=== PATIENT | female | born 1945 | race Caucasian/White ===

== ENCOUNTER 2017-03-25 21:20 | Inpatient (IN) | payer MEDICAID ==
[2017-03-26] MEDS: morphine 4 MG/ML VIAL IV (00:23)
[2017-03-26] MEDS: ONDANSETRON 4 MG INJ IV (00:24)
[2017-03-26 00:29] LABS: ADD UMIC YES; UR ASCORBIC ACID NEGATIVE (NEGATIVE); UR BACTERIA MANY /HPF (NONE SEEN); UR BILIRUBIN (Dip) NEGATIVE (NEGATIVE); UR BLOOD (Dip) NEGATIVE (NEGATIVE); UR CLARITY CLOUDY (CLEAR); UR COLOR AMBER (YELLOW); UR GLUCOSE (Dip) NEGATIVE (NEGATIVE); UR GRANULAR CAST FEW /HPF (NONE SEEN); UR KETONES (Dip) 1+ mg/dL (NEGATIVE); UR LEUKOCYTE ESTERASE (Dip) 3+ Leu/ul (NEGATIVE); UR MUCUS FEW /HPF (NONE SEEN); UR NITRITE (Dip) POSITIVE (NEGATIVE); UR RBC 6 /HPF (0-5); UR SPECIFIC GRAVITY (Dip) 1.018 (1.003-1.030); UR SQUAMOUS EPITHELIAL CELL FEW /HPF (FEW); UR TOTAL PROTEIN (Dip) 2+ mg/dl (NEGATIVE); UR TRANSITIONAL EPI CELL FEW /HPF (NONE SEEN); UR UROBILINOGEN (Dip) NEGATIVE (NEGATIVE); UR WBC 34 /HPF (0-5)
[2017-03-26 00:32] LABS: ADD MAN DIFF? NO
[2017-03-26] MEDS: SODIUM CHLORIDE 0.9% 1L BAG IV* (00:35)
[2017-03-26 00:54] LABS: WHITE BLOOD COUNT 8.4 10^3/ul (4.8-10.8)
[2017-03-26 00:54] LABS: BASOPHIL # 0.1 10^3/ul (0.0-0.1); BASOPHILS % 0.7 % (0.0-2.0); HEMATOCRIT 42.9 % (37.0-47.0); HEMOGLOBIN 13.5 g/dl (12.0-16.0); LYMPHOCYTES # 0.7 10^3/ul (0.8-2.9); MEAN CORPUSCULAR HEMOGLOBIN 26.1 pg (29.0-33.0); MEAN CORPUSCULAR HGB CONC 31.5 g/dl (32.0-37.0); MEAN CORPUSCULAR VOLUME 82.8 fl (82.0-101.0); MONOCYTE # 0.7 10^3/ul (0.3-0.9); MONOCYTES % 8.5 % (0.0-11.0); NEUTROPHIL # 6.9 10^3/ul (1.6-7.5); NEUTROPHILS % 82.3 % (39.0-77.0); PLATELET COUNT 260 10^3/UL (140-415); RED BLOOD COUNT 5.18 10^6/ul (4.20-5.40); RED CELL DISTRIBUTION WIDTH 16.8 % (11.5-14.5)
[2017-03-26 01:26] LABS: LACTIC ACID 1.5 mmol/L (0.5-2.0)
[2017-03-26 01:29] LABS: ALANINE AMINOTRANSFERASE 31 IU/L (13-69); ALBUMIN 4.2 g/dl (3.3-4.9); ALKALINE PHOSPHATASE 109 IU/L (42-121); ANION GAP 20 (8-16); ASPARTATE AMINO TRANSFERASE 27 IU/L (15-46); BLOOD UREA NITROGEN 20 mg/dl (7-20); CALCIUM 9.5 mg/dl (8.4-10.2); CARBON DIOXIDE 24 mmol/L (21-31); CHLORIDE 102 mmol/L (97-110); CREATININE 1.14 mg/dl (0.44-1.00); GLUCOSE 173 mg/dl (70-220); POTASSIUM 3.6 mmol/L (3.5-5.1); SODIUM 142 mmol/L (135-144); TOTAL PROTEIN 7.7 g/dl (6.1-8.1)
[2017-03-26 01:40] LABS: TROPONIN-I 0.012 ng/ml (0.00-0.12)
[2017-03-26 01:43] LABS: INR 0.89; PROTIME 12.1 Sec (11.9-14.9); PT RATIO 0.9
[2017-03-26 01:44] LABS: PARTIAL THROMBOPLASTIN TIME 33.8 Sec (25.0-35.0)
[2017-03-26 02:35] LABS: LACTIC ACID 0.8 mmol/L (0.5-2.0)
[2017-03-26] MEDS ORDERED: ONDANSETRON 4 MG INJ IV (03:30)
[2017-03-26] MEDS ORDERED: ACETAMINOPHEN 325 MG TAB PO (03:30)
[2017-03-26] MEDS ORDERED: morphine 2 MG INJ IV (06:30)
[2017-03-26] MEDS ORDERED: NACL 0.9% 3 ML SYG IV (06:30)
[2017-03-26] MEDS ORDERED: DEXTROSE 50% 50 ML SYRINGE IV ×2 (06:30)
[2017-03-26] MEDS ORDERED: GLUCOSE GEL 15 GRAM TUBE PO ×2 (06:30)
[2017-03-26] MEDS ORDERED: ALBUTEROL/IPRATROPIUM (NEB) 3 ML AMP HHN (06:30)
[2017-03-26] MEDS ORDERED: GLUCOSE GEL 15 GRAM TUBE BUCCAL (06:30)
[2017-03-26] MEDS ORDERED: GLUCAGON 1 MG INJ IM (06:30)
[2017-03-26] MEDS: INSULIN GLARGINE [LANtus] 3 ML PEN SC (08:00)
[2017-03-26] MEDS: INSULIN ASPART [NOVOLOG] 3 ML PEN SC ×4 (08:00→20:18)
[2017-03-26 08:38] LABS: ALANINE AMINOTRANSFERASE 26 IU/L (13-69); ALBUMIN 3.6 g/dl (3.3-4.9); ALBUMIN/GLOBULIN RATIO 1.16; ALKALINE PHOSPHATASE 82 IU/L (42-121); ANION GAP 16 (8-16); ASPARTATE AMINO TRANSFERASE 31 IU/L (15-46); BLOOD UREA NITROGEN 15 mg/dl (7-20); CARBON DIOXIDE 23 mmol/L (21-31); CHLORIDE 109 mmol/L (97-110); CREATININE 0.87 mg/dl (0.44-1.00); GLUCOSE 109 mg/dl (70-220); POTASSIUM 3.4 mmol/L (3.5-5.1); SODIUM 145 mmol/L (135-144); TOTAL PROTEIN 6.7 g/dl (6.1-8.1)
[2017-03-26] MEDS: DOCUSATE SODIUM 100 MG CAP PO ×2 (09:13→20:15)
[2017-03-26] MEDS: ASPIRIN (EC) 325 MG TAB PO (09:13)
[2017-03-26] MEDS: AMLODIPINE 10 MG TAB PO (09:13)
[2017-03-26] MEDS: HEPARIN 5,000 UNIT/0.5 ML VIAL SC ×2 (09:14→20:17)
[2017-03-26] MEDS: BENAZEPRIL 40 MG TAB PO (09:14)
[2017-03-26] MEDS: SOD CHLORIDE 0.9% 1,000 ML IV ×3 (09:15→19:41)
[2017-03-26] MEDS: CEFTRIAXONE 1 GM/50 ML (PMX) 50 ML IVPB (09:23)
[2017-03-26] MEDS: POTASSIUM CHLORIDE (SR) 20 MEQ TAB PO (09:23)
[2017-03-26 11:23] LABS: ADD MAN DIFF? NO
[2017-03-26 11:30] LABS: WHITE BLOOD COUNT 7.3 10^3/ul (4.8-10.8)
[2017-03-26 11:30] LABS: BASOPHIL # 0.1 10^3/ul (0.0-0.1); BASOPHILS % 0.7 % (0.0-2.0); HEMATOCRIT 36.5 % (37.0-47.0); HEMOGLOBIN 11.7 g/dl (12.0-16.0); LYMPHOCYTES # 0.9 10^3/ul (0.8-2.9); LYMPHOCYTES % 12.5 % (15.0-51.0); MEAN CORPUSCULAR HEMOGLOBIN 26.7 pg (29.0-33.0); MEAN CORPUSCULAR HGB CONC 32.1 g/dl (32.0-37.0); MEAN CORPUSCULAR VOLUME 83.1 fl (82.0-101.0); MEAN PLATELET VOLUME 10.7 fl (7.4-10.4); MONOCYTES % 13.5 % (0.0-11.0); NEUTROPHIL # 5.3 10^3/ul (1.6-7.5); NEUTROPHILS % 72.9 % (39.0-77.0); PLATELET COUNT 205 10^3/UL (140-415); RED BLOOD COUNT 4.39 10^6/ul (4.20-5.40); RED CELL DISTRIBUTION WIDTH 17.2 % (11.5-14.5)
[2017-03-26] MEDS: ACETAMINOPHEN 325 MG TAB PO (12:21)
[2017-03-26] MEDS: ALBUTEROL/IPRATROPIUM (NEB) 3 ML AMP HHN (13:14)
[2017-03-26] MEDS ORDERED: GUAIFENESIN 20 MG/ML 5ML CUP PO (18:00)
[2017-03-26] MEDS: ATORVASTATIN 10 MG TAB PO (20:16)
[2017-03-26] MEDS: RANITIDINE 150 MG TAB PO (20:16)
[2017-03-26] MEDS: GUAIFENESIN/DM 5ML CUP PO (22:07)
[2017-03-27] MEDS: ACCU-CHEK XX (02:00)
[2017-03-27 05:04] LABS: ADD MAN DIFF? NO
[2017-03-27 05:12] LABS: BASOPHIL # 0.1 10^3/ul (0.0-0.1); EOSINOPHILS % 0.2 % (0.0-7.0); HEMATOCRIT 34.8 % (37.0-47.0); HEMOGLOBIN 11.1 g/dl (12.0-16.0); LYMPHOCYTES # 1.5 10^3/ul (0.8-2.9); LYMPHOCYTES % 29.8 % (15.0-51.0); MEAN CORPUSCULAR HEMOGLOBIN 26.5 pg (29.0-33.0); MEAN CORPUSCULAR HGB CONC 31.9 g/dl (32.0-37.0); MEAN CORPUSCULAR VOLUME 83.1 fl (82.0-101.0); MEAN PLATELET VOLUME 10.5 fl (7.4-10.4); MONOCYTE # 0.7 10^3/ul (0.3-0.9); MONOCYTES % 13.6 % (0.0-11.0); NEUTROPHIL # 2.8 10^3/ul (1.6-7.5); NEUTROPHILS % 55.2 % (39.0-77.0); PLATELET COUNT 200 10^3/UL (140-415); RED BLOOD COUNT 4.19 10^6/ul (4.20-5.40)
[2017-03-27 05:12] LABS: WHITE BLOOD COUNT 5.1 10^3/ul (4.8-10.8)
[2017-03-27 05:31] LABS: ANION GAP 12 (8-16); BLOOD UREA NITROGEN 9 mg/dl (7-20); CARBON DIOXIDE 26 mmol/L (21-31); CHLORIDE 108 mmol/L (97-110); CREATININE 0.76 mg/dl (0.44-1.00); GLUCOSE 92 mg/dl (70-220); MAGNESIUM 1.7 mg/dl (1.7-2.5); PHOSPHORUS 2.7 mg/dl (2.5-4.9); POTASSIUM 3.2 mmol/L (3.5-5.1); SODIUM 143 mmol/L (135-144)
[2017-03-27] MEDS: INSULIN ASPART [NOVOLOG] 3 ML PEN SC ×4 (07:50→20:25)
[2017-03-27] MEDS: CEFTRIAXONE 1 GM/50 ML (PMX) 50 ML IVPB (08:52)
[2017-03-27] MEDS: ONDANSETRON 4 MG INJ IV (08:52)
[2017-03-27] MEDS: GUAIFENESIN/DM 5ML CUP PO (08:53)
[2017-03-27] MEDS: DOCUSATE SODIUM 100 MG CAP PO ×2 (08:54→21:11)
[2017-03-27] MEDS: ASPIRIN (EC) 325 MG TAB PO (08:54)
[2017-03-27] MEDS: HEPARIN 5,000 UNIT/0.5 ML VIAL SC ×2 (08:54→21:14)
[2017-03-27] MEDS: INSULIN GLARGINE [LANtus] 3 ML PEN SC (08:55)
[2017-03-27] MEDS: BENAZEPRIL 40 MG TAB PO (09:01)
[2017-03-27] MEDS: AMLODIPINE 10 MG TAB PO (09:02)
[2017-03-27] MEDS: ACETAMINOPHEN 325 MG TAB PO ×2 (09:17→21:13)
[2017-03-27] MEDS: POTASSIUM CHLORIDE (SR) 20 MEQ TAB PO (11:26)
[2017-03-27 12:30] LABS: HEMOGLOBIN A1C 6.5 % (0-5.9)
[2017-03-27] MEDS: RANITIDINE 150 MG TAB PO (21:12)
[2017-03-27] MEDS: ATORVASTATIN 10 MG TAB PO (21:12)
[2017-03-28] MEDS: ACCU-CHEK XX (01:37)
[2017-03-28 06:13] LABS: ANION GAP 12 (8-16); BLOOD UREA NITROGEN 11 mg/dl (7-20); CALCIUM 8.8 mg/dl (8.4-10.2); CARBON DIOXIDE 27 mmol/L (21-31); CHLORIDE 106 mmol/L (97-110); CREATININE 0.84 mg/dl (0.44-1.00); GLUCOSE 101 mg/dl (70-220); POTASSIUM 3.4 mmol/L (3.5-5.1); SODIUM 142 mmol/L (135-144)
[2017-03-28] MEDS: INSULIN ASPART [NOVOLOG] 3 ML PEN SC ×2 (07:50→11:40)
[2017-03-28] MEDS: ACETAMINOPHEN 325 MG TAB PO (09:43)
[2017-03-28] MEDS: ASPIRIN (EC) 325 MG TAB PO (09:43)
[2017-03-28] MEDS: AMLODIPINE 10 MG TAB PO (09:44)
[2017-03-28] MEDS: DOCUSATE SODIUM 100 MG CAP PO (09:44)
[2017-03-28] MEDS: BENAZEPRIL 40 MG TAB PO (09:45)
[2017-03-28] MEDS: CEFTRIAXONE 1 GM/50 ML (PMX) 50 ML IVPB (09:46)
[2017-03-28] MEDS: INSULIN GLARGINE [LANtus] 3 ML PEN SC (09:54)
[2017-03-28] MEDS: HEPARIN 5,000 UNIT/0.5 ML VIAL SC (09:54)
[2017-03-28] MEDS: CIPROFLOXACIN 500 MG TAB PO (11:30)
[2017-03-28] MEDS: POTASSIUM CHLORIDE (SR) 20 MEQ TAB PO (11:32)
[2017-03-28] MEDS: INFLUENZA VIRUS VACCINE 0.5 ML (DISPENSING) IM* (11:35)
== END 2017-03-28 15:35 | disposition home or self-care (01) | DRG 872 ==
LOC: E/R 21:20 → MS1 03-26 03:13
DX: A41.9 Sepsis, unspecified organism (principal); N39.0 Urinary tract infection, site not specified; I10 Essential (primary) hypertension; E11.9 Type 2 diabetes mellitus without complications; B96.20 Unspecified Escherichia coli [E. coli] as the cause of diseases classified elsewhere; J06.9 Acute upper respiratory infection, unspecified; E78.5 Hyperlipidemia, unspecified; Z86.73 Personal history of transient ischemic attack (TIA), and cerebral infarction without residual deficits; Z79.84 Long term (current) use of oral hypoglycemic drugs; Z79.82 Long term (current) use of aspirin
CPT/HCPCS: 36415; 71045; 80048; 80053; 81001; 82962; 83036; 83605; 83735; 84100; 84484; 85025; 85610; 85730; 87040; 87086; 87400; 90686; 93005; 94664; 96374; 96375; 99291-25